=== PATIENT | female | born 1990 | race Caucasian/White ===

== ENCOUNTER 2021-01-04 12:13 | Emergency (ER) | payer SELFPAY ==
[2021-01-04] MEDS ORDERED: Lidocaine 1% 20 ML MDV INJECT ONE (13:24)
[2021-01-04] MEDS ORDERED: Bacitracin Oint 1 GM U/D Packet TOP ONE (13:25)
--- NOTE | 2021-01-04 13:31 | EDM.PDOC ---
ED HPI GENERAL MEDICAL PROBLEM - General Chief Complaint: Lower Extremity Injury/Pain Stated Complaint: INJURED TOE ON LEFT FOOT Time Seen by Provider: 01/04/21 13:20 Source of Information: Reports: Patient History Limitations: Reports: No Limitations - History of Present Illness INITIAL COMMENTS - FREE TEXT/NARRATIVE: Patient helping mother move furniture and her foot was caught under the couch. Upon inspecting the toe. The toenail is avulsed from the great toe on the left foot. It is still attached at a base of the nailbed. Patient is having significant pain. She believes her tetanus is current. And is agreeable to have toenail reattached. 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 (see below) - Related Data Allergies Allergy/AdvReac Type Severity Reaction Status Date / Time amoxicillin Allergy Nausea Verified 01/04/21 13:15 Home Meds: Home Meds NK [No Known Home Meds] 01/04/21 [History] Past Medical History - Past Health History Medical/Surgical History: Denies Medical/Surgical History - Infectious Disease History Infectious Disease History: Reports: Chicken Pox Social & Family History - Tobacco Use Tobacco Use Status *Q: Current Every Day Tobacco User Years of Tobacco use: 5 Packs/Tins Daily: 0.5 - Recreational Drug Use Recreational Drug Use: No Review of Systems - Review of Systems Review Of Systems: See Below Constitutional: Reports: No Symptoms Musculoskeletal: Reports: Foot Pain (Avulsion of left great toe ) Skin: Reports: No Symptoms ED EXAM, GENERAL - Physical Exam Exam: See Below Free Text/Narrative:: Patient with a avulsed left great toe. Patient was moving furniture and inadvertently removed toenail Exam Limited By: No Limitations General Appearance: Alert, WD/WN, Mild Distress Peripheral Pulses: 2+: Dorsalis Pedis (L) Extremities: Normal Range of Motion, No Pedal Edema, Normal Capillary Refill, Other (Pain of left great toe due to avulsed nail) Neurological: Alert, Oriented, CN II-XII Intact Course - Vital Signs Last Recorded V/S: Last Vital Signs Temp 36.3 C 01/04/21 13:19 Pulse 81 01/04/21 14:57 Resp 12 01/04/21 13:19 BP 139/92 H 01/04/21 14:57 Pulse Ox 97 01/04/21 14:57 - Orders/Labs/Meds Orders: Tetanus updated due to length of time since previous tetanus. Meds: Medications Discontinued Medications Generic Name Dose Route Start Last Admin Trade Name Jamil PRN Reason Stop Dose Admin Bacitracin 1 dose 01/04/21 13:25 01/04/21 13:29 Bacitracin Oint 1 Gm U/D Packet TOP 01/04/21 13:26 1 dose ONETIME ONE Administration Diphtheria/Tetanus/Acell Pertussis 0.5 ml 01/04/21 13:32 01/04/21 13:36 Diphtheria,Pertussis(Acell),Tetanus Vaccine 0.5 Ml Syringe IM 01/04/21 13:33 0.5 ml .ONCE ONE Administration Lidocaine HCl 20 ml 01/04/21 13:24 01/04/21 13:29 Lidocaine 1% 20 Ml Mdv INJECT 01/04/21 13:25 20 ml ONETIME ONE Administration - Re-Assessments/Exams Free Text/Narrative Re-Assessment/Exam: 01/04/21 15:02 Able to seat nail back in place without difficulty. Attempted to suture nail to bed of the toe however patient was able to tolerate attempt to do so. Digital block numbed part of toe but not completely. Toenail was secured using Steri- Strips and tincture. Patient was instructed not to wear open toed shoes additionally she may use padding if necessary including an extra sock while inside of his shoe to prevent bumping. Any signs or symptoms of infection patient is to return to clinic. Patient instructed toenail will likely fall off as a new toenail comes in underneath. Patient also instructed there may be some toenail deformation likely as new toe nail comes in if there was damage to the toenail bed in itself.. Departure - Departure Time of Disposition: 15:26 Disposition: Home, Self-Care 01 Clinical Impression: Total avulsion of nail plate - Discharge Information Instructions: Nail Bed Laceration Referrals: PCP,None [Primary Care Provider] - Forms: ED Department Discharge Additional Instructions: Keep elevated to prevent throbbing. Use ice elevation and rest in the next few days to promote comfort and healing. Return to ER or clinic if any signs of infection. Follow-up with primary care if any other further concerns. Sepsis Event Note (ED) - Evaluation Sepsis Screening Result: No Definite Risk - Focused Exam Vital Signs: Vital Signs Temp Pulse Resp BP Pulse Ox 01/04/21 14:57 81 139/92 H 97 01/04/21 13:19 36.3 C 92 12 148/91 H 98 - Assessment/Plan Assessment:: Left great toenail avulsion Plan: Home with self-care. Patient to utilize Tylenol or ibuprofen for pain relief, rest ice and elevation to promote comfort. Return to clinic if there are further concerns or any signs or symptoms of infection. Tetanus provided due to length of time since previous tetanus
[2021-01-04] MEDS ORDERED: Diphtheria,Pertussis(Acell),Tetanus Vaccine 0.5 ML Syringe IM ONE (13:32)
== END 2021-01-04 15:27 | disposition home or self-care (01) ==
LOC: JP.ED 12:13
DX: S91.202A Unspecified open wound of left great toe with damage to nail, initial encounter (principal); Z72.0 Tobacco use; Z88.0 Allergy status to penicillin; Z23 Encounter for immunization; W23.0XXA Caught, crushed, jammed, or pinched between moving objects, initial encounter
CPT/HCPCS: 11730; 90471; 90715; 99283-25